=== PATIENT | male | born 1980 | race Caucasian/White ===

== ENCOUNTER 2018-02-16 12:06 | Emergency (ER) | payer MEDICAID, SELFPAY | END 2018-02-16 14:17 | disposition home or self-care (01) | LOC: M ED 12:06 | DX: Z76.0 Encounter for issue of repeat prescription (principal); I10 Essential (primary) hypertension; F32.9 Major depressive disorder, single episode, unspecified; Z79.899 Other long term (current) drug therapy | CPT/HCPCS: 99283 ==

== ENCOUNTER 2018-03-14 09:11 | Emergency (ER) | payer MEDICAID, SELFPAY | END 2018-03-14 09:58 | disposition home or self-care (01) | LOC: M ED 09:11 | DX: F19.10 Other psychoactive substance abuse, uncomplicated (principal); S00.81XA Abrasion of other part of head, initial encounter; X58.XXXA Exposure to other specified factors, initial encounter; Y92.89 Other specified places as the place of occurrence of the external cause; I10 Essential (primary) hypertension; M54.9 Dorsalgia, unspecified; G89.29 Other chronic pain; F17.200 Nicotine dependence, unspecified, uncomplicated | CPT/HCPCS: 99283 ==

== ENCOUNTER 2018-06-13 14:31 | Emergency (ER) | payer MEDICAID ==
[~2018-06-13] VITALS: Ht 175.3 cm; Wt 90.9 kg
[~2018-06-13 14:31] MED LIST: Amlodipine Besylate PO; Amoxicillin/Clavulanate Potas PO; GABA800T4 PO; HYDR25TAB PO; LISI-538 PO; ZOLO100T PO
[2018-06-13] MEDS ORDERED: HYDR25TAB PO (16:06)
[2018-06-13] MEDS ORDERED: LISI-538 PO (16:06)
[2018-06-13 16:19] VITALS: BP 138/64
== END 2018-06-13 16:32 | disposition home or self-care (01) ==
LOC: M ED 14:31
DX: Z76.0 Encounter for issue of repeat prescription (principal); I10 Essential (primary) hypertension; F17.200 Nicotine dependence, unspecified, uncomplicated

== ENCOUNTER 2018-06-21 18:50 | Emergency (ER) | payer MEDICAID ==
[~2018-06-21] VITALS: Ht 175.3 cm; Wt 93.2 kg
[2018-06-21 18:50] VITALS: BP 136/74
[2018-06-21] MEDS ORDERED: SUBO2MIS SL (18:54)
[2018-06-21] MEDS ORDERED: NS 1,000 ML IV ONE (19:30)
[2018-06-21 19:44] LABS: BASO # 0.1 10^3/uL (0.0-0.2); BASO % 0.5 % (0.0-1.0); EOS # 0.1 10^3/uL (0.0-0.50); EOS % 1.2 % (0.0-3.0); HEMATOCRIT 44.8 % (42.0-52.0); HEMOGLOBIN 15.4 g/dl (13.5-17.5); LYMPH # 2.8 10^3/uL (1.5-4.5); LYMPH % 29.7 % (24.0-44.0); MEAN CORPUSCULAR HEMOGLOBIN 29.3 pg (27.0-33.0); MEAN CORPUSCULAR HGB CONC 34.4 g/dl (32.0-36.5); MEAN CORPUSCULAR VOLUME 85.3 fl (80.0-96.0); MONO # 0.8 10^3/uL (0.0-0.8); MONO % 8.5 % (0.0-5.0); NEUTROPHILS # 5.7 10^3/uL (1.8-7.7); NEUTROPHILS % 59.6 % (36.0-66.0); PLATELET COUNT, AUTOMATED 411 10^3/uL (150-450); RED BLOOD COUNT 5.25 10^6/uL (4.30-6.10); WHITE BLOOD COUNT 9.5 10^3/uL (4.0-10.0)
[2018-06-21 20:09] LABS: ALBUMIN 3.8 GM/DL (3.2-5.2); ALT/SGPT 48 U/L (12-78); BILIRUBIN,DIRECT < 0.1 MG/DL (0.0-0.2); BILIRUBIN,TOTAL 0.3 MG/DL (0.2-1.0); BLOOD UREA NITROGEN 21 MG/DL (7-18); CALCIUM LEVEL 8.9 MG/DL (8.5-10.1); CARBON DIOXIDE LEVEL 28 MEQ/L (21-32); CHLORIDE LEVEL 101 MEQ/L (98-107); CREATININE FOR GFR 0.91 MG/DL (0.70-1.30); GLOMERULAR FILTRATION RATE > 60.0 (>60); GLUCOSE, FASTING 79 MG/DL (70-100); LIPASE 142 U/L (73-393); SODIUM LEVEL 137 MEQ/L (136-145); TOTAL PROTEIN 6.8 GM/DL (6.4-8.2)
[2018-06-21] MEDS ORDERED: ISOVUE-370 76% 100ML VIAL (Q9967) As Ordered ONE (20:15)
[2018-06-21] MEDS ORDERED: COLA100C5 PO (21:59)
[2018-06-21] MEDS ORDERED: MIRA3350 PO (21:59)
--- NOTE | 2018-06-22 09:35 | REP ---
CT abdomen and pelvis with IV but without oral contrast: Repeat dictation. Preliminary report is provided at the time of exam by [facility]. CT contrast dose: 100 mL of intravenous Isovue 370. No comparison study. 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 The lung bases are clear on axial CT images. The liver and the spleen are normal in size, homogeneous in texture. No adrenal lesion is seen. Pancreas is unremarkable. Gallbladder is small and contracted in appearance. The kidneys enhance symmetrically and are morphologically intact. Normal appendix is seen. Small and large intestinal bowel loops are normal in appearance. There is one tiny dystrophic calcification in the prostate. Urinary bladder is unremarkable. No abdominal wall defect is seen. No bony destructive lesion is observed. Impression: No significant abnormality. Electronically Signed by William Goldstein MD 06/22/2018 10:21 A
[2018-07-22] MEDS ORDERED: OMEP20CA3 PO (11:49)
== END 2018-06-21 22:11 | disposition home or self-care (01) ==
LOC: M ED 18:50
DX: K62.5 Hemorrhage of anus and rectum (principal); I10 Essential (primary) hypertension; F41.9 Anxiety disorder, unspecified; Z79.899 Other long term (current) drug therapy; Z79.891 Long term (current) use of opiate analgesic
CPT/HCPCS: 74177; 80048; 80076; 81001; 83690; 85025; 96360; 96361; 99284; Q9967

== ENCOUNTER 2018-08-05 12:24 | Day surgery (SDC) | payer MEDICAID ==
[~2018-08-05] VITALS: Ht 175.3 cm; Wt 102.5 kg
[~2018-08-05 12:24] MED LIST changes: +COLA100C5 PO; +MIRA3350 PO; +NS 1,000 ML IV ONE; +OMEP20CA3 PO; +SUBO2MIS SL
[2018-08-05] MEDS ORDERED: PROPOFOL 200 MG/20 ML VIAL As Ordered ONE ×2 (14:53→14:54)
[2018-08-05] MEDS ORDERED: LIDOCAINE 2% INJ 100 MG/5 ML SDV (FOR ANES.) As Ordered ONE (14:54)
--- NOTE | 2018-08-05 15:00 | ROOR ---
Patient Name: Percy Romero Procedure Date: 08/05/2018 2:35 PM Date of : 1980 Age: 37 Room: [facility] Gender: Male Note Status: Finalized Procedure: Total Colonoscopy to Cecum + Biopsy Polypectomy Indications: Rectal bleeding, Rectal pain Providers: Candelario Wilkes MD Referring MD: Fidel Antoine Requesting Provider: Medicines: Monitored Anesthesia Care Complications: No immediate complications. Procedure: Pre-Anesthesia Assessment: - The heart rate, respiratory rate, oxygen saturations, blood pressure, adequacy of pulmonary ventilation, and response to care were monitored throughout the procedure. The Colonoscope was introduced through the anus and advanced to the cecum, identified by appendiceal orifice and ileocecal valve. The colonoscopy was performed without difficulty. The patient tolerated the procedure well. The quality of the bowel preparation was excellent. Findings: The perianal and digital rectal examinations were normal. Non-bleeding internal hemorrhoids were found during retroflexion. The hemorrhoids were small and Grade I (internal hemorrhoids that do not prolapse). A diminutive polyp was found at 20 cm proximal to the anus. The polyp was sessile. The polyp was removed with a jumbo cold forceps. Resection and retrieval were complete. The exam was otherwise without abnormality on direct and retroflexion views. Impression: - Non-bleeding internal hemorrhoids. - One diminutive polyp at 20 cm proximal to the anus, removed with a jumbo cold forceps. Resected and retrieved. - The examination was otherwise normal on direct and retroflexion views. - The exam was otherwise normal to the cecum. Recommendation: - Patient has a contact number available for emergencies. The signs and symptoms of potential delayed complications were discussed with the patient. Return to normal activities tomorrow. Written discharge instructions were provided to the patient. - High fiber diet. - Discharge patient to home. - Continue present medications. - Await pathology results. - Telephone GI clinic for pathology results in 1 week. - Return to referring physician. - The findings and recommendations were discussed with the patient's family. Candelario Wilkes MD Candelario Wilkes MD 08/05/2018 2:59:20 PM This report has been signed electronically. Number of Addenda: 0 Note Initiated On: 08/05/2018 2:35 PM Estimated Blood Loss: Estimated blood loss: none.
[2018-08-05 15:20] VITALS: BP 137/73
== END 2018-08-05 15:30 | disposition home or self-care (01) ==
LOC: M OPP 12:24
PROVIDERS: ATTEND Internal Medicine Gastroenterology
DX: K64.0 First degree hemorrhoids (principal); K63.5 Polyp of colon; K62.5 Hemorrhage of anus and rectum; K62.89 Other specified diseases of anus and rectum; Z79.899 Other long term (current) drug therapy; Z87.891 Personal history of nicotine dependence

== ENCOUNTER → 2018-08-18 | Outpatient (REF) | payer MEDICAID ==
[~2018-08-18] MED LIST changes: -NS 1,000 ML IV ONE
[2018-08-18 17:39] LABS: INFLUENZA A AMPLIFICATION POSITIVE (NEGATIVE); INFLUENZA B AMPLIFICATION NEGATIVE (NEGATIVE)
== END ==
LOC: M LAB REF 16:20
PROVIDERS: ATTEND Physician Assistant Medical
DX: J11.1 Influenza due to unidentified influenza virus with other respiratory manifestations (principal)

== ENCOUNTER → 2019-11-17 | Outpatient (REF) | payer OTHER ==
[~2019-11-17] MED LIST changes: +OMEP1CAP73 PO; -OMEP20CA3 PO
== END ==
LOC: M LAB REF 12:30
PROVIDERS: ATTEND Surgery
DX: Z11.59 Encounter for screening for other viral diseases (principal)

== ENCOUNTER 2022-10-17 04:43 | Emergency (ER) | payer OTHER, SELFPAY ==
[~2022-10-17] VITALS: Ht 175.3 cm; Wt 102.0 kg
[~2022-10-17 04:43] MED LIST changes: +HYDR-3490 PO; -HYDR25TAB PO; -LISI-538 PO; +LISI20TA33 PO
[2022-10-17 04:44] VITALS: BP 158/100
== END 2022-10-17 05:35 | disposition left against medical advice (07) ==
LOC: M ED 04:43
DX: Z53.21 Procedure and treatment not carried out due to patient leaving prior to being seen by health care provider (principal)

== ENCOUNTER 2024-01-30 20:09 | Emergency (ER) | payer OTHER ==
[~2024-01-30] VITALS: Ht 175.3 cm; Wt 98.9 kg
[2024-01-30] MEDS: PROPARACAINE 0.5% OPHTH SOL 15ML OD ONE (21:11)
[2024-01-30] MEDS: FLUORESCEIN OPHTH 1MG STRIP OD ONE (21:11)
[2024-01-30] MEDS: ERYTHROMYCIN OPHTH OINT OD ONE (21:55)
[2024-01-30] MEDS: BOOSTRIX VACCINE (TETANUS/DIPHTH/ACEL. PERTUSSIS) 0.5ML SYR IM.IMMUN ONE (21:56)
[2024-01-30 22:09] VITALS: BP 184/98; TEMP 97.2; O2SAT 98
== END 2024-01-30 22:11 | disposition home or self-care (01) ==
LOC: M ED 20:09
DX: T15.02XA Foreign body in cornea, left eye, initial encounter (principal); Y93.89 Activity, other specified; Z23 Encounter for immunization